=== PATIENT | male | born 1945 | race Caucasian/White ===

== ENCOUNTER → 2016-05-19 | Outpatient (CLI) | payer MEDICARE, BC ==
[~2016-05-19] MED LIST: FOSI10TA PO; FURO20TA PO; GABA300C5 PO; GEMF600T PO; GLIM2TAB PO; HYDR-3366 PO; LEVEMIR SQ; METF500T PO; MULTTAB67 PO; NOVOINJ6 SQ; NOVOLOGP2 SQ; RESV1CAP2 PO; TAMS0.4C4 PO; TIZA4CAP3 PO; VITA2000 PO; ZANA2CAP PO
[2016-05-19 13:02] LABS: AUTOMATED NEUTROPHIL # 3.7 TH/MM3 (1.8-7.7); BASOPHIL % 0.6 % (0.0-2.0); EOSINOPHIL # 0.2 TH/MM3 (0-0.4); EOSINOPHIL % 3.1 % (0.0-4.0); HEMATOCRIT 39.3 % (39.0-51.0); HEMO FLAGS DIFF FINAL; LYMPH % 13.6 % (9.0-44.0); LYMPHOCYTE # 0.7 TH/MM3 (1.0-4.8); MEAN CELL VOLUME 93.8 FL (80.0-100.0); MEAN CORPUSCULAR HEMOGLOBIN 32.5 PG (27.0-34.0); MEAN CORPUSCULAR HGB CONC 34.6 % (32.0-36.0); MONO % 11.7 % (0.0-8.0); PLATELET COUNT 181 TH/MM3 (150-450); RED BLOOD COUNT 4.19 MIL/MM3 (4.50-5.90); RED CELL DISTRIBUTION WIDTH 16.3 % (11.6-17.2); WHITE BLOOD COUNT 5.3 TH/MM3 (4.0-11.0)
[2016-05-19 13:12] LABS: APTT (PATIENT) 26.1 SEC (24.3-30.1); INTERNATIONAL NORMALIZED RATIO 0.9 RATIO
[2016-05-19 13:32] LABS: ALKALINE PHOSPHATASE 121 U/L (45-117); ALT (GPT) 21 U/L (12-78); ANION GAP 6 MEQ/L (5-15); AST (GOT) 12 U/L (15-37); BICARBONATE 30.2 MEQ/L (21.0-32.0); BLOOD UREA NITROGEN 27 MG/DL (7-18); CHLORIDE 101 MEQ/L (98-107); GLOMERULAR FILTRATION RATE 82 ML/MIN (>89); GLUCOSE,FASTING 291 MG/DL (74-99); POTASSIUM 4.8 MEQ/L (3.5-5.1); SODIUM (NA) 137 MEQ/L (136-145); TOTAL BILIRUBIN ADULT 0.5 MG/DL (0.2-1.0)
[2016-05-19 13:59] LABS: BACTERIA, URINE RARE /hpf; BLOOD, URINE SMALL (NEG); GLUCOSE,URINE 1000 mg/dL (NEG); KETONE, URINE NEG (NEG); NITRITE,URINE NEG (NEG); PH, URINE 5.5 (5.0-8.5); URINE COLOR LIGHT-YELLOW (YELLW/STRAW)
[2016-05-19 14:01] LABS: COMMENT (UR) CULT NOT INDICATED; CULTURE IF INDICATED CULT NOT INDICATED
--- NOTE | 2016-05-19 18:40 | EKG ---
Date Performed: 05/19/2016 Time Performed: 12:40:36 PTAGE: 71 years EKG: Sinus rhythm WITH FIRST DEGREE AV BLOCK WITH OCCASIONAL SUPRAVENTRICULAR PREMATURE COMPLEXES RIGHT BUNDLE BRANCH BLOCK ABNORMAL ECG PREVIOUS TRACING : 07/26/2015 09.32 Compared to prior tracing no significant change DOCTOR: Stephan Samuels Interpretating Date/Time 05/19/2016 18:39:54
== END ==
LOC: CPRE 12:11
PROVIDERS: ATTEND Neurological Surgery
DX: Z01.810 Encounter for preprocedural cardiovascular examination (principal); Z01.812 Encounter for preprocedural laboratory examination; M21.371 Foot drop, right foot; I44.0 Atrioventricular block, first degree; I45.10 Unspecified right bundle-branch block
CPT/HCPCS: 36415; 80053; 81001; 85025; 85610; 85730; 93005

== ENCOUNTER → 2016-05-22 | Day surgery (SDC) | payer MEDICARE, BC ==
[~2016-05-22] VITALS: Ht 170.2 cm; Wt 91.0 kg
[~2016-05-22] MED LIST changes: +*RESP: ALBUTEROL 2.5 MG/3 ML NEB (PRN) PERIprocedural Use ONLY NEB ONE; +ACETAMINOPHEN 1000 MG/100 ML VIAL IV ONE; +ACETAMINOPHEN/HYDROcodone 325 MG/10 MG TAB PO PRN; +CHOLECALCIFEROL (VIT D3) 1000 UNIT TAB PO SCH; +DO NOT ADM ANY ANTICOAGULANT DRUGS XX PRN; +FAMOTIDINE 20 MG/2 ML VIAL ONE; -FURO20TA PO; +GABAPENTIN 300 MG CAP PO SCH; +GELFOAM SIZE 100 TOPICAL ONE; +GEMFIBROZIL 600 MG TAB PO SCH; +GLIMEPIRIDE 2 MG TAB PO SCH; +INSULIN HUMAN REGULAR 1,000 UNITS/10 ML VIAL SQ PRN; +LACTATED RINGER'S 1000 ML INJ 1,000 ML IV ONE; +LACTATED RINGER'S 1000 ML IV SCH; +LISINOPRIL 10 MG TAB PO SCH; +METOPROLOL TARTRATE 25 MG TAB PO PRN; +MIDAZOLAM HCL 2 MG/2 ML VIAL ONE; +MORPHINE SULFATE 4 MG/ML INJ IV PUSH PRN; +MULTIVITAMIN TAB PO SCH; +NEOSTIGMINE 3 MG/3 ML SYR IV ONE; -NOVOINJ6 SQ; +ONDANSETRON HCL 4 MG/2 ML VIAL IV PUSH ONE; +ONDANSETRON HCL 4 MG/2 ML VIAL IV PUSH PRN; +PHENYLEPH/NS 1000 MCG/10 ML SYR IV ONE; +PROPOFOL 200 MG/20 ML AMP IV ONE; +RESVERATROL PO SCH; +SODIUM CHLOR 0.9% 1000 ML INJ 1,000 ML IV SCH; +SODIUM CHLORID 0.9% 500 ML IV SCH; +TAMSULOSIN HCL 0.4 MG CAP PO SCH; +THROMBIN (TOPICAL) 5,000 UNIT VIAL TOPICAL ONE; +VANCOMYCIN HCL 1000 MG ON-CALL/NS 250 ML IV SCH; +VANCOMYCIN HCL 1000 MG VIAL OTHER ONE; +ePHEDrine/NS 25 MG/5 ML SYR IV ONE; +fentaNYL CITRATE 250 MCG/5 ML AMP ONE; +metFORMIN HCL 500 MG TAB PO SCH; +methylPREDNISolone ACETATE 40 MG/ML VIAL I-LESIONAL ONE
[2016-05-22 07:06] VITALS: BP 140/70; PULSE 86; RESP 16; TEMP 98.3; O2SAT 96
[2016-05-22] MEDS: BUPIVACAINE/EPINEPHRINE 0.5% 50 ML VIAL INFIL ONE ×2 (09:05→10:48)
--- NOTE | 2016-05-22 12:02 | RADRPT ---
EXAM DATE/TIME: 05/22/2016 08:17 [place] COMPARISON: No previous studies available for comparison. INDICATIONS : L3-L4-L5 hemilaminotomy. Level localization. MEDICAL HISTORY : None. SURGICAL HISTORY : None. ENCOUNTER: Initial ACUITY: 1 day PAIN SCORE: Non-responsive. LOCATION: Lumbar spine. FINDINGS: Lateral view of the lumbar spine demonstrates the presence of 2 level localizers. One is located at t he L3 level and the second at the L5 level. Tissue retractors are noted at the L4 level. CONCLUSION: Level localizers as described above. Michael Medrano MD on May 22, 2016 at 11:57 Board Certified Radiologist. This report was verified electronically.
--- NOTE | 2016-05-22 12:05 | PD.OP ---
MD Andre Kelly MD Operative Report Date of Surgery: May 22, 2016 Preoperative Diagnosis: Severe lumbar L3-4 and L4-5 spinal stenosis from facet and ligamentum flavum hypertrophy along with the degenerative disc disease and scoliosis; intractable low back pain with radiculopathy and neurogenic claudication Postoperative Diagnosis: Procedure: Bilateral L3, L4 and L5 decompressive laminotomies with medial facetectomies and foraminotomies; microsurgical technique Anesthesia: Gen. endotracheal by Andres Brito Surgeon: Abelino John M.D. Education Technician(s): Jocelyn Dmuont Operation and Findings: Following administration of general endotracheal anesthesia, patient received vancomycin 1 g intravenously. Sequential compression devices were placed for DVT prophylaxis. He was then turned in prone position on Elder frame and the Marcos table and all pressure points adequately padded. The lumbar region was then shaved and prepped with a Betadine and ChloraPrep. Sterile draping undertaken with Ioban. Midline incision overlying the L3-5 levels was then made after infiltrating the skin with 0.5% Marcaine with epinephrine solution. The skin incision was made extending down through the fascia and then using the subperiosteal plane on the right side the muscular attachments to the spinous process and lamina were detached. Intraoperative fluoroscopy was used for level confirmation and further dissection undertaken using microtechnique with microscope magnification. The inferior portion of the L3, right L4, and superior portion of the L5 lamina were then drilled out and the underlying ligamentum flavum also removed. There was facet arthropathy noted with associated foraminal stenosis and the medial portion of facets was also resected and the lateral recess along with the foramen decompressed. Bilateral medial facetectomies and foraminotomies were undertaken through the right hemilaminotomy approach with gentle thecal sac retraction for the left-sided decompression. Epidural venous stasis which he with the bipolar cautery along with Gelfoam and thrombin and bone wax used at the laminotomy edges for hemostasis. The area was then copiously irrigated with vancomycin solution. The retractors removed and the muscle fascia proximal using 2-0 Vicryl interrupted stitches. 3-0 Vicryl subcuticular stitches were also placed in an interrupted fashion and planned skin closure was with Mastisol and Steri- Strips. A sterile dressing was then applied and the patient then turned in the supine position and extubated and taken to recovery room in stable condition. There were no intraoperative complications and all sponge and needle count was correct at the end of the procedure. Estimated blood loss about 100 ml. Abelino John MD May 22, 2016 12:05
[2016-05-22 13:34] VITALS: BP 144/71; PULSE 99; RESP 20; TEMP 97.9; O2SAT 96
== END | disposition home or self-care (01) ==
LOC: HSDC 05:55
PROVIDERS: ATTEND Neurological Surgery
DX: M48.06 Spinal stenosis, lumbar region (principal); M51.16 Intervertebral disc disorders with radiculopathy, lumbar region; I73.9 Peripheral vascular disease, unspecified; Z79.4 Long term (current) use of insulin; Z79.84 Long term (current) use of oral hypoglycemic drugs; E11.9 Type 2 diabetes mellitus without complications; E05.90 Thyrotoxicosis, unspecified without thyrotoxic crisis or storm; G47.30 Sleep apnea, unspecified; I10 Essential (primary) hypertension; Z85.038 Personal history of other malignant neoplasm of large intestine; M19.90 Unspecified osteoarthritis, unspecified site
CPT/HCPCS: 00630; 63030; 63035; 72020; 76000; 82948; J0131; J1030; J2250; J2370; J2405; J2710; J3010; J3370; J7050; J7120; J7613; 94150